=== PATIENT | female | born 1990 | race Two or more races ===

== ENCOUNTER 2024-05-18 14:37 | Emergency (ER) | payer MEDICAID, OTHER ==
[~2024-05-18] VITALS: Ht 167.6 cm; Wt 78.9 kg
[2024-05-18 18:20] VITALS: BP 133/85; TEMP 98; O2SAT 100
== END 2024-05-18 18:21 | disposition hospice, inpatient (51) ==
LOC: ER 14:37
DX: O9A.212 Injury, poisoning and certain other consequences of external causes complicating pregnancy, second trimester (principal); S30.1XXA Contusion of abdominal wall, initial encounter; M54.9 Dorsalgia, unspecified; Z3A.27 27 weeks gestation of pregnancy; Z88.0 Allergy status to penicillin; V89.2XXA Person injured in unspecified motor-vehicle accident, traffic, initial encounter; Y93.89 Activity, other specified; Y92.89 Other specified places as the place of occurrence of the external cause; Y99.8 Other external cause status
CPT/HCPCS: 76815; A4606; A4663